=== PATIENT | female | born 1990 | race Caucasian/White ===

== ENCOUNTER 2017-04-19 21:05 | Emergency (ER) | payer SELFPAY ==
[~2017-04-19] VITALS: Ht 162.6 cm; Wt 62.3 kg
[2017-04-19 21:18] VITALS: BP 144/118
== END 2017-04-19 23:21 | disposition left against medical advice (07) ==
LOC: EDSEX 21:08 → EMS 21:08
DX: L02.512 Cutaneous abscess of left hand (principal); Z53.21 Procedure and treatment not carried out due to patient leaving prior to being seen by health care provider